=== PATIENT | female | born 1990 ===

== ENCOUNTER 2017-04-15 00:39 | Emergency (ER) | payer SELFPAY ==
[2017-04-15 01:00] VITALS: BP 129/64; PULSE 79; RESP 16; TEMP 98; O2SAT 99
--- NOTE | 2017-04-15 01:57 | ED PDOC ---
HPI: Eye Injury/Pain Time Seen by Provider: 04/15/17 00:57 Chief Complaint (Nursing): Eye Problem Chief Complaint (Provider): right eye irritation History Per: Patient History/Exam Limitations: no limitations Onset/Duration Of Symptoms: Days (1) Current Symptoms Are (Timing): Still Present Associated Symptoms: Pain, Itching, Discharge From Eye Additional History Per: Patient Additional Complaint(s): 26 y/o female presents with right eye irritation x 1 day. Associated redness, yellow discharge, itching, and pain. Denies fever, headache, FB sensation, vision changes, trauma to eye. Past Medical History Reviewed: Historical Data, Nursing Documentation, Vital Signs Vital Signs: Last Vital Signs Temp 98.0 F 04/15/17 00:54 Pulse 79 04/15/17 00:54 Resp 16 04/15/17 00:54 BP 129/64 04/15/17 00:54 Pulse Ox 99 04/15/17 00:54 - Medical History PMH: No Chronic Diseases - Surgical History Surgical History: No Surg Hx - Family History Family History: States: Unknown Family Hx - Home Medications Home Medications: Ambulatory Orders Medication Instructions Recorded Phenazopyridine HCl [Pyridium] 100 mg PO TID #9 tab 05/13/15 Sulfamethoxazole/Trimethopri 1 tab PO BID #6 tab 05/13/15 [Bactrim Ds 800 mg-160 mg] Polymyxin/Trimethoprim Sulfate 1 drop OD QID #1 bottle 04/15/17 [Polytrim Ophth Soln] - Allergies Allergies/Adverse Reactions: Allergies Allergy/AdvReac Type Severity Reaction Status Date / Time No Known Allergies Allergy Verified 05/13/15 07:34 Review of Systems ROS Statement: Except As Marked, All Systems Reviewed And Found Negative Eyes: Positive for: Redness (right) Physical Exam - Reviewed Nursing Documentation Reviewed: Yes Vital Signs Reviewed: Yes - Physical Exam Appears: Positive for: Well, Non-toxic, No Acute Distress Head Exam: Positive for: ATRAUMATIC, NORMAL INSPECTION, NORMOCEPHALIC Eye Exam: Positive for: EOMI, PERRL, Conjunctival injection (right, + dried discharge noted to lower lid). Negative for: Periorbital swelling, Periorbital tenderness Cardiovascular/Chest: Positive for: Regular Rate, Rhythm Respiratory: Positive for: Normal Breath Sounds Neurologic/Psych: Positive for: Alert, Oriented - ECG O2 Sat by Pulse Oximetry: 99 - Progress ED Course And Treament: right eye anesthesized with 2 drops tetracaine; fluro stain reveals no uptake. Visual acuity OS: 20/16 OD: 20/13 OU: 20/13 Patient educated on findings, discharged with rx polytrim. Advised follow up PMD 2-3 days. Return to ED for worsening/concerning symptoms. Disposition - Clinical Impression Clinical Impression: Conjunctivitis - Patient ED Disposition Is Patient to be Admitted: No Counseled Patient/Family Regarding: Studies Performed, Diagnosis, Need For Followup, Rx Given - Disposition Disposition: Routine/Home Disposition Time: 02:04 Condition: STABLE Prescriptions: Polymyxin/Trimethoprim Sulfate [Polytrim Ophth Soln] 1 drop OD QID #1 bottle Instructions: Conjunctivitis (ED) Print Language: SLOVENIAN
== END 2017-04-15 02:56 | disposition home or self-care (01) ==
LOC: H.ER 00:39
DX: H10.9 Unspecified conjunctivitis (principal)

== ENCOUNTER 2017-12-09 00:59 | Emergency (ER) | payer OTHER ==
[2017-12-09 01:12] VITALS: BMI 29.9
[2017-12-09 01:15] VITALS: O2SAT 99
[2017-12-09] MEDS ORDERED: Sodium Chloride 0.9% 1,000 ML IV STA (01:52)
--- NOTE | 2017-12-09 01:55 | ED PDOC ---
HPI: Hypertension/Hypotension Time Seen by Provider: 12/09/17 01:23 Chief Complaint (Nursing): Palpitations Chief Complaint (Provider): palpitations History Per: Patient History/Exam Limitations: no limitations Onset/Duration Of Symptoms: Days (1 week), Waxing/Waning Current Symptoms Are (Timing): Still Present Additional History Per: Patient Additional Complaint(s): 27 y/o female presents for evaluation of intermittent palpitations x 1 week. Patient states symptoms present at night while she is trying to sleep. Patient also notes tingling to hands when palpitations are present. Patient states she is not sleeping well due to symptoms. Denies fever, cough, congestion, chest pain, shortness of breath, leg pain/swelling, recent travel, feeling stressed/ anxious. Past Medical History Reviewed: Historical Data, Nursing Documentation, Vital Signs Vital Signs: Last Vital Signs Temp 99.4 F 12/09/17 01:12 Pulse 83 12/09/17 01:12 Resp 18 12/09/17 01:12 BP 162/112 H 12/09/17 01:12 Pulse Ox 99 12/09/17 01:12 - Medical History PMH: No Chronic Diseases - Surgical History Surgical History: - Family History Family History: States: Unknown Family Hx - Home Medications Home Medications: Ambulatory Orders Medication Instructions Recorded Phenazopyridine HCl [Pyridium] 100 mg PO TID #9 tab 05/13/15 Sulfamethoxazole/Trimethopri 1 tab PO BID #6 tab 05/13/15 [Bactrim Ds 800 mg-160 mg] Polymyxin/Trimethoprim Sulfate 1 drop OD QID #1 bottle 04/15/17 [Polytrim Ophth Soln] - Allergies Allergies/Adverse Reactions: Allergies Allergy/AdvReac Type Severity Reaction Status Date / Time No Known Allergies Allergy Verified 12/09/17 01:12 Review of Systems ROS Statement: Except As Marked, All Systems Reviewed And Found Negative Cardiovascular: Positive for: Palpitations Physical Exam - Reviewed Nursing Documentation Reviewed: Yes Vital Signs Reviewed: Yes - Physical Exam Appears: Positive for: Well, Non-toxic, No Acute Distress Head Exam: Positive for: ATRAUMATIC, NORMAL INSPECTION, NORMOCEPHALIC Skin: Positive for: Normal Color Eye Exam: Positive for: Normal appearance ENT: Positive for: Normal ENT Inspection Cardiovascular/Chest: Positive for: Regular Rate, Rhythm Respiratory: Positive for: Normal Breath Sounds Gastrointestinal/Abdominal: Positive for: Normal Exam Back: Positive for: Normal Inspection Extremity: Positive for: Normal ROM Neurologic/Psych: Positive for: Alert, Oriented - Laboratory Results Result Diagrams: 12/09/17 02:01 12/09/17 02:01 - ECG ECG: Positive for: Viewed By Me (reviewed by ED attending) ECG Rhythm: Positive for: Sinus Rhythm O2 Sat by Pulse Oximetry: 99 - Progress ED Course And Treament: labs, ekg Patient educated on findings (including slightly elevated TSH, LFTs) Advised to follow up PMD 2-3 days. Return precautions given. Disposition - Clinical Impression Clinical Impression: Palpitations - Patient ED Disposition Is Patient to be Admitted: No Counseled Patient/Family Regarding: Studies Performed, Diagnosis, Need For Followup - Disposition Referrals: [facility] [Outside] Disposition: Routine/Home Disposition Time: 03:33 Condition: STABLE Instructions: Palpitations (ED) Forms: [employer] (Iranian) Print Language: MAORI
[2017-12-09 02:04] LABS: BASO % 0.3 % (0.0-2.0); EOS # 0.3 K/uL (0.0-0.7); EOS % 2.8 % (0.0-4.0); HEMOGLOBIN 12.6 g/dL (12.0-16.0); LYMPH # 3.5 K/uL (1.0-4.3); LYMPH % 36.7 % (20.0-40.0); MEAN CELL VOLUME 84.2 fl (81.0-99.0); MEAN CORPUSCULAR HEMOGLOBIN 27.6 pg (27.0-31.0); MEAN CORPUSCULAR HGB CONC 32.8 g/dL (33.0-37.0); MEAN PLATELET VOLUME 8.6 fl (7.2-11.7); MONO # 0.9 K/uL (0.0-0.8); MONO % 9.3 % (0.0-10.0); NEUT # 4.9 K/uL (1.8-7.0); NEUT % 50.9 % (50.0-75.0); RBC 4.56 Mil/uL (3.80-5.20); WHITE BLOOD COUNT 9.6 K/uL (4.8-10.8)
[2017-12-09 02:35] LABS: ALB/GLOB RATIO 1.4 (1.0-2.1); ALBUMIN 4.7 g/dL (3.5-5.0); ALT/SGPT 140 U/L (9-52); AST/SGOT 78 U/L (14-36); BLOOD UREA NITROGEN 17 mg/dl (7-17); CALCIUM 10.1 mg/dL (8.4-10.2); GFR AFRICAN-AMERICAN > 60; GFR NON-AFRICAN AMERICAN > 60
[2017-12-09 04:16] VITALS: BP 140/85; PULSE 93; RESP 16; TEMP 98
== END 2017-12-09 03:45 | disposition home or self-care (01) ==
LOC: H.ER 00:59
DX: R00.2 Palpitations (principal); I10 Essential (primary) hypertension

== ENCOUNTER 2017-12-11 12:46 | Emergency (ER) | payer OTHER ==
[2017-12-11 13:00] VITALS: BMI 30.6
[2017-12-11 13:01] VITALS: BP 127/84; PULSE 80; RESP 16; TEMP 98.5; O2SAT 100
[2017-12-11 14:47] LABS: SQUAMOUS EPITHIAL 2 /hpf (0-5); URINE BACTERIA RARE (<OCC); URINE BILIRUBIN NEGATIVE (NEGATIVE); URINE BLOOD NEGATIVE (NEGATIVE); URINE CLARITY SLIGHTY-CLOUDY (Clear); URINE COLOR YELLOW (YELLOW); URINE GLUCOSE (UA) NEG (Normal); URINE LEUKOCYTE ESTERASE NEG Leu/uL (Negative); URINE NITRATE NEGATIVE (NEGATIVE); URINE PROTEIN NEGATIVE (NEGATIVE); URINE UROBILINOGEN 0.2-1.0 mg/dL (0.2-1.0)
[2017-12-11 15:04] LABS: HEMOGLOBIN 12.2 g/dL (12.0-16.0); MEAN CORPUSCULAR HEMOGLOBIN 27.5 pg (27.0-31.0); MEAN CORPUSCULAR HGB CONC 32.4 g/dL (33.0-37.0); RBC 4.43 Mil/uL (3.80-5.20); RED CELL DISTRIBUTION WIDTH 13.7 % (11.5-14.5); WHITE BLOOD COUNT 7.7 K/uL (4.8-10.8)
[2017-12-11 15:13] LABS: ALB/GLOB RATIO 1.4 (1.0-2.1); ALBUMIN 4.5 g/dL (3.5-5.0); ALT/SGPT 186 U/L (9-52); AST/SGOT 122 U/L (14-36); BLOOD UREA NITROGEN 13 mg/dl (7-17); CALCIUM 9.4 mg/dL (8.4-10.2); GFR AFRICAN-AMERICAN > 60; GFR NON-AFRICAN AMERICAN > 60
--- NOTE | 2017-12-11 16:32 | ED PDOC ---
HPI: Abdomen Time Seen by Provider: 12/11/17 13:11 Chief Complaint (Nursing): Abdominal Pain Chief Complaint (Provider): Right low back pain, white vaginal discharge History Per: Patient History/Exam Limitations: no limitations Onset/Duration Of Symptoms: Days Outside of [place] travel?: No Current Symptoms Are (Timing): Still Present Severity: Mild Quality Of Discomfort: Dull Associated Symptoms: denies: Fever, Chills, Nausea, Vomiting, Loss Of Appetite Exacerbating Factors: None Additional Complaint(s): No dysuria. No abdominal pain. Pt denies N/v/D. Pt also reports vaginal discharge, white, without abnormal odor. Pt states that she last had sex 1 month ago. No fever/chills. Past Medical History Reviewed: Historical Data, Nursing Documentation, Vital Signs Vital Signs: Last Vital Signs Temp 98.5 F 12/11/17 13:00 Pulse 80 12/11/17 13:00 Resp 16 12/11/17 13:00 BP 127/84 12/11/17 13:00 Pulse Ox 100 12/11/17 13:00 - Medical History PMH: No Chronic Diseases - Surgical History Surgical History: - Family History Family History: States: Unknown Family Hx - Home Medications Home Medications: Ambulatory Orders Medication Instructions Recorded Phenazopyridine HCl [Pyridium] 100 mg PO TID #9 tab 05/13/15 Sulfamethoxazole/Trimethopri 1 tab PO BID #6 tab 05/13/15 [Bactrim Ds 800 mg-160 mg] Polymyxin/Trimethoprim Sulfate 1 drop OD QID #1 bottle 04/15/17 [Polytrim Ophth Soln] Ibuprofen [Motrin Tab] 800 mg PO Q6H PRN #20 tab 12/11/17 - Allergies Allergies/Adverse Reactions: Allergies Allergy/AdvReac Type Severity Reaction Status Date / Time No Known Allergies Allergy Verified 12/11/17 12:59 Review of Systems ROS Statement: Except As Marked, All Systems Reviewed And Found Negative Constitutional: Negative for: Fever, Chills Cardiovascular: Negative for: Chest Pain Genitourinary Female: Positive for: Vaginal Discharge Musculoskeletal: Positive for: Back Pain Physical Exam - Reviewed Nursing Documentation Reviewed: Yes Vital Signs Reviewed: Yes - Physical Exam Appears: Positive for: Well, Non-toxic, No Acute Distress Head Exam: Positive for: ATRAUMATIC, NORMAL INSPECTION, NORMOCEPHALIC Skin: Positive for: Normal Color, Warm, DRY Eye Exam: Positive for: Normal appearance ENT: Positive for: Normal ENT Inspection Neck: Positive for: Normal, Painless ROM Cardiovascular/Chest: Positive for: Regular Rate, Rhythm Respiratory: Positive for: Normal Breath Sounds. Negative for: Accessory Muscle Use, Respiratory Distress Gastrointestinal/Abdominal: Positive for: Normal Exam, Bowel Sounds, Soft. Negative for: Tenderness Pelvic Exam: Positive for: External Exam Normal, Speculum Exam Normal, Bimanual Exam Normal Back: Positive for: Normal Inspection Extremity: Positive for: Normal ROM Neurologic/Psych: Positive for: Alert, Oriented - Laboratory Results Result Diagrams: 12/11/17 14:55 12/11/17 14:55 - ECG O2 Sat by Pulse Oximetry: 100 Medical Decision Making Medical Decision Making: Genital cultures sent to lab. Discussed slight elevation of LFT. Disposition - Clinical Impression Clinical Impression: Back pain, Vaginal discharge - Patient ED Disposition Is Patient to be Admitted: No Counseled Patient/Family Regarding: Diagnosis, Need For Followup, Rx Given - Disposition Disposition: Routine/Home Disposition Time: 16:26 Condition: GOOD Prescriptions: Ibuprofen [Motrin Tab] 800 mg PO Q6H PRN #20 tab PRN Reason: Pain Instructions: Acute Low Back Pain (ED)
== END 2017-12-11 17:12 | disposition home or self-care (01) ==
LOC: H.ER 12:46
DX: N89.8 Other specified noninflammatory disorders of vagina (principal); M54.5 Low back pain; R79.89 Other specified abnormal findings of blood chemistry

== ENCOUNTER 2018-02-17 15:59 | Emergency (ER) | payer OTHER ==
[2018-02-17 15:59] VITALS: BMI 30.6
[2018-02-17 16:32] VITALS: O2SAT 99
[2018-02-17] MEDS ORDERED: Sodium Chloride 0.9% 1,000 ML IV STA (16:55)
[2018-02-17] MEDS ORDERED: Iohexol 240 (50 ml) PO ONE (16:55)
--- NOTE | 2018-02-17 16:58 | ED PDOC ---
HPI: Abdomen Time Seen by Provider: 02/17/18 16:45 Chief Complaint (Nursing): Abdominal Pain Chief Complaint (Provider): Abd pain History Per: Patient History/Exam Limitations: no limitations Onset/Duration Of Symptoms: Days (1 month) Current Symptoms Are (Timing): Still Present Additional Complaint(s): Pt. with abd pain left lower. No dysuria. No weakness, headaches, back pain, dizziness, nausea, vomit, diarrhea. No fever. Has clear vaginal dc. Pain and dc for 1 month. Here 1 month ago for the same and no findings. Past Medical History Reviewed: Historical Data, Nursing Documentation, Vital Signs Vital Signs: Last Vital Signs Temp 98.2 F 02/17/18 16:29 Pulse 100 H 02/17/18 16:29 Resp 18 02/17/18 16:29 BP 130/84 02/17/18 16:29 Pulse Ox 99 02/17/18 17:44 - Medical History PMH: No Chronic Diseases - Surgical History Surgical History: - Family History Family History: States: Unknown Family Hx - Living Arrangements Living Arrangements: With Family - Social History Current smoker - smoking cessation education provided: No Alcohol: None Drugs: Denies - Home Medications Home Medications: Ambulatory Orders Medication Instructions Recorded Phenazopyridine HCl [Pyridium] 100 mg PO TID #9 tab 05/13/15 Sulfamethoxazole/Trimethopri 1 tab PO BID #6 tab 05/13/15 [Bactrim Ds 800 mg-160 mg] Polymyxin/Trimethoprim Sulfate 1 drop OD QID #1 bottle 04/15/17 [Polytrim Ophth Soln] Ibuprofen [Motrin Tab] 800 mg PO Q6H PRN #20 tab 12/11/17 Ibuprofen [Motrin] 600 mg PO TID 7 Days tab 02/17/18 - Allergies Allergies/Adverse Reactions: Allergies Allergy/AdvReac Type Severity Reaction Status Date / Time No Known Allergies Allergy Verified 12/11/17 12:59 Review of Systems ROS Statement: Except As Marked, All Systems Reviewed And Found Negative Gastrointestinal: Positive for: Abdominal Pain Genitourinary Female: Positive for: Vaginal Discharge Physical Exam - Reviewed Nursing Documentation Reviewed: Yes Vital Signs Reviewed: Yes - Physical Exam Appears: Positive for: Non-toxic, No Acute Distress Head Exam: Positive for: ATRAUMATIC, NORMAL INSPECTION, NORMOCEPHALIC Skin: Positive for: Normal Color, Warm, DRY Eye Exam: Positive for: EOMI, Normal appearance, PERRL ENT: Positive for: Normal ENT Inspection Neck: Positive for: Normal, Painless ROM Cardiovascular/Chest: Positive for: Regular Rate, Rhythm Respiratory: Positive for: CNT, Normal Breath Sounds Gastrointestinal/Abdominal: Positive for: Soft, Tenderness (LLQ). Negative for : Distended, Guarding Pelvic Exam: Positive for: External Exam Normal, No Cerv. Motion Tender, Other ( ? trace yellow discoloration noted at cervix) Back: Positive for: Normal Inspection. Negative for: L CVA Tenderness, R CVA Tenderness Extremity: Positive for: Normal ROM Neurologic/Psych: Positive for: Alert, Oriented - Laboratory Results Result Diagrams: 02/17/18 17:22 02/17/18 17:22 Interpretation Of Abn Labs: mild elevated ast and alt - ECG O2 Sat by Pulse Oximetry: 99 Pulse Ox Interpretation: Normal - CT Scan/US US Other Rad Studies (CT/US): Read By Radiologist Other Rad Interpretation: R ovarian cyst - Progress ED Course And Treament: 2108: Stable. AAOx3. Pain free. Tolerated po. Fu with pcp. Disposition - Clinical Impression Clinical Impression: Abdominal pain, Elevated liver enzymes, Ovarian cyst - Patient ED Disposition Is Patient to be Admitted: No Counseled Patient/Family Regarding: Studies Performed, Diagnosis, Need For Followup, Rx Given - Disposition Referrals: [facility] [Outside] - [facility]18[facility] - 02/18/18 Disposition: Routine/Home Disposition Time: 21:10 Condition: STABLE Additional Instructions: Return if not better in 3 days. See the primary care doctor for further evaluation of elevated liver enzymes. Prescriptions: Ibuprofen [Motrin] 600 mg PO TID 7 Days tab Instructions: Ovarian Cysts, Acute Abdomen (Belly Pain) Forms: [employer] (Turkmen), [facility] ED School/Work Excuse
[2018-02-17] MEDS ORDERED: Iohexol 240 (50 ml) ONE (17:06)
[2018-02-17 17:31] LABS: BASO % 0.2 % (0.0-2.0); EOS # 0.2 K/uL (0.0-0.7); EOS % 1.7 % (0.0-4.0); HEMOGLOBIN 12.6 g/dL (12.0-16.0); LYMPH # 2.6 K/uL (1.0-4.3); LYMPH % 29.7 % (20.0-40.0); MEAN CELL VOLUME 82.8 fl (81.0-99.0); MEAN CORPUSCULAR HEMOGLOBIN 27.3 pg (27.0-31.0); MEAN PLATELET VOLUME 8.5 fl (7.2-11.7); MONO # 0.7 K/uL (0.0-0.8); MONO % 7.6 % (0.0-10.0); NEUT # 5.3 K/uL (1.8-7.0); NEUT % 60.8 % (50.0-75.0); RBC 4.62 Mil/uL (3.80-5.20); RED CELL DISTRIBUTION WIDTH 14.2 % (11.5-14.5); WHITE BLOOD COUNT 8.7 K/uL (4.8-10.8)
[2018-02-17 17:41] LABS: ALB/GLOB RATIO 1.2 (1.0-2.1); ALBUMIN 4.4 g/dL (3.5-5.0); ALT/SGPT 59 U/L (9-52); AST/SGOT 45 U/L (14-36); BLOOD UREA NITROGEN 13 mg/dl (7-17); CALCIUM 9.3 mg/dL (8.4-10.2); GFR AFRICAN-AMERICAN > 60; GFR NON-AFRICAN AMERICAN > 60
[2018-02-17] MEDS ORDERED: Iohexol 300 100 ML IJ ONE (19:41)
[2018-02-17] MEDS ORDERED: Sodium Chloride 0.9% 100 ML ONE (19:42)
--- NOTE | 2018-02-17 20:29 | CT ---
EXAM: CT Abdomen and Pelvis With Intravenous Contrast CLINICAL HISTORY: 27 years old, female; Pain; Abdominal pain; Localized; Left lower quadrant (llq); Prior surgery; Surgery date: 6+ months; Surgery type: C-sections 2; Additional info: Abd pain TECHNIQUE: Axial computed tomography images of the abdomen and pelvis with intravenous contrast. All CT scans at this facility use one or more dose reduction techniques, viz.: automated exposure control; ma/kV adjustment per patient size (including targeted exams where dose is matched to indication; i.e. head); or iterative reconstruction technique. Coronal and sagittal reformatted images were created and reviewed. CONTRAST: 95 mL of [id number] administered intravenously. COMPARISON: No relevant prior studies available. FINDINGS: Limitations: Motion artifact - mild to moderate. Lung bases: No acute findings. ABDOMEN: Liver: Fatty infiltration. Gallbladder and bile ducts: No calcified stones. No ductal dilation. Pancreas: No ductal dilation. No mass. Spleen: No splenomegaly. Adrenals: No mass. Kidneys and ureters: No mass. No hydronephrosis. Stomach and bowel: No definite mural thickening. No obstruction. Appendix: Normal caliber. No definite inflammation. PELVIS: Bladder: Unremarkable. Reproductive: 2.1 x 1.9 x 1.2 cm peripherally enhancing hypodensity with crenulated margins within RIGHT ovary. ABDOMEN and PELVIS: Intraperitoneal space: Small free fluid within pelvis. No free air. Bones/joints: No acute fracture. Soft tissues: Unremarkable. Vasculature: Unremarkable. No aneurysm. Lymph nodes: No pathologically enlarged lymph nodes. IMPRESSION: 1. Involuting or ruptured RIGHT ovarian follicle/cyst. 2. Incidental/non-acute findings are described above.
[2018-02-17 21:22] VITALS: BP 118/76; PULSE 88; RESP 16; TEMP 98
== END 2018-02-17 21:22 | disposition home or self-care (01) ==
LOC: H.ER 15:59
DX: R10.9 Unspecified abdominal pain (principal); R94.5 Abnormal results of liver function studies; N83.209 Unspecified ovarian cyst, unspecified side
CPT/HCPCS: 74177; 80053; 81025; 85025; 87491; 87591; 96374; 99284; J1885; J7040; Q9966; Q9967